=== PATIENT | male | born 1955 ===

== ENCOUNTER 2021-01-13 12:43 | Outpatient (CLI) | payer OTHER, SELFPAY ==
--- NOTE | 2021-01-13 12:50 | ECG_ITS ---
[facility] Test Date: 2021-01-13 Pat Name: Ramin Worthy Department: Room: Gender: Male [employer]: : 1955 Requested By: Constantine Abdul Order Number: [id number] Jenny MD: Rk Denney M.D. Interpretive Statements INDICATION: CHEST PAIN Procedure: At the baseline, the blood pressure was 159/88mmHg with a heart rate of 69 bpm. The electrocardiogram showed normal sinus rhythm, left axis deviation with normal ST and T's. The Lexiscan was infused over a period of 20 seconds. A total of 0.4 mg of Lexiscan was infused. The stress phase was continued for a total of 5 minutes. Heart rate was at the end of stress phase was 134 bpm and a blood pressure of 220/110 mmHg. The EKG at the peak infusion revealed since normal sinus rhythm with no significant ST-T wave changes. Sestamibi was injected 20 seconds after the Lexiscan infusion. Blood pressure at the end of recovery phase was 180/90 mmHg with a heart rate of 83 bpm. Conclusion: 1. Normal EKG response to Lexiscan infusion 2. No Lexiscan induced chest pain or cardiac arrhythmia. 3. Normal blood pressure and heart rate response. 4. Sestamibi/sestamibi perfusion scan pending; see separate report. Electronically Signed On 02-16-2021 15:17:24 CDT by Rk Denney M.[email or web address]
[2021-01-13 13:29] VITALS: BP 180/90; PULSE 83; BMI 30.2
== END 2021-01-13 12:44 | disposition home or self-care (01) ==
PROVIDERS: Visit Provider Internal Medicine
DX: R07.9 Chest pain, unspecified (principal)
CPT/HCPCS: 93017